=== PATIENT | female | born 1945 | race Caucasian/White ===

== ENCOUNTER 2018-03-28 08:31 | Inpatient (IN) | payer MEDICARE ==
[~2018-03-28] VITALS: Ht 157.5 cm; Wt 63.2 kg
[~2018-03-28 08:31] MED LIST: ASPI325T17 PO; ENAL5TAB PO; NITR0.4T28 SL; SIMV20TA3 PO
[2018-03-28 09:05] LABS: BASOPHILS # (AUTO) 0.03 x10^3/uL (0-0.1); BASOPHILS % (AUTO) 0 % (0-1); EOSINOPHILS # (AUTO) 0.03 x10^3/uL (0-0.4); EOSINOPHILS % (AUTO) 0 % (1-7); LYMPHOCYTES # (AUTO) 1.28 x10^3/uL (1-3.4); LYMPHOCYTES % (AUTO) 12 % (22-44); MD NO; MEAN CORPUSCULAR HEMOGLOBIN 26.8 pg (27.0-34.8); MEAN CORPUSCULAR HGB CONC 32.9 g/dL (32.4-35.8); MEAN CORPUSCULAR VOLUME 81.6 fL (80-100); MEAN PLATELET VOLUME 8.4 fL (7.4-10.4); MONOCYTES # (AUTO) 0.47 x10^3/uL (0.2-0.8); MONOCYTES % (AUTO) 5 % (2-9); NEUTROPHILS # (AUTO) 8.46 x10^3/uL (1.8-6.8); NEUTROPHILS % (AUTO) 82 % (42-75); PLATELET COUNT 315 x10^3/uL (130-400); RED BLOOD COUNT 4.29 x10^6/uL (3.82-5.3); RED CELL DISTRIBUTION WIDTH 16.5 % (9.6-15.2)
[2018-03-28] MEDS ORDERED: PROMETHAZINE 25 MG/ML, 1ML ONE (09:07)
[2018-03-28] MEDS ORDERED: MAALOX/HYOSCYAMINE/LIDOCAINE 45 ML BTL ONE (09:07)
[2018-03-28 09:14] LABS: INTERNATIONAL NORMALIZED RATIO 0.97 (0.93-1.1)
[2018-03-28 09:22] LABS: TROPONIN I < 0.015 ng/mL (0.000-0.045)
[2018-03-28 09:25] LABS: ALANINE AMINOTRANSFERASE 18 U/L (12-78); ALBUMIN 3.2 g/dL (3.4-5.0); ANION GAP 7 mmol/L (5-15); CALCIUM 8.3 mg/dL (8.5-10.1); CHLORIDE 106 mmol/L (98-107); CREATININE 0.78 mg/dL (0.55-1.02)
[2018-03-28 09:27] LABS: ALKALINE PHOSPHATASE 65 U/L (45-117); BILIRUBIN,TOTAL 0.3 mg/dL (0.2-1.0)
[2018-03-28] MEDS ORDERED: PROMETHAZINE 25 MG/ML, 1ML IM ONE ×2 (09:30→10:00)
[2018-03-28] MEDS ORDERED: ALPR1TAB6 PO (09:59)
[2018-03-28] MEDS ORDERED: MAALOX/HYOSCYAMINE/LIDOCAINE 45 ML BTL PO ONE (10:00)
[2018-03-28 10:44] LABS: MICROSCOPIC AUTO
[2018-03-28 10:45] LABS: CULTURE INDICATED? YES
[2018-03-28] MEDS ORDERED: OMNIPAQUE 350 MG/ML, 100ML BOTTLE ONE (10:46)
[2018-03-28] MEDS ORDERED: CEFTRIAXONE PMX 1GM/50ML 50 ML ONE ×2 (10:57→10:58)
[2018-03-28] MEDS ORDERED: CEFTRIAXONE PMX 1GM/50ML 50 ML IV ONE (11:00)
[2018-03-28 11:28] VITALS: BP 161/77
[2018-03-28] MEDS ORDERED: CEFTRIAXONE PMX 1GM/50ML 50 ML IV SCH (12:00)
[2018-03-28] MEDS ORDERED: POTASSIUM CHLORIDE 20 MEQ TAB.ER.PRT PO ONE (12:00)
[2018-03-28] MEDS ORDERED: ENOXAPARIN 40 MG/0.4 ML SQ SCH (12:30)
[2018-03-28] MEDS ORDERED: hydrALAzine 20 MG/ML, 1ML IVPush PRN (12:30)
[2018-03-28] MEDS ORDERED: ONDANSETRON 2MG/ML, 2ML IVPush PRN (12:30)
[2018-03-28] MEDS ORDERED: ACETAMINOPHEN 325 MG TABLET PO PRN (12:30)
[2018-03-28] MEDS ORDERED: morphine SULFATE 10 MG/ML, 1ML IVPush PRN (12:30)
[2018-03-28] MEDS ORDERED: HYDROcodone/APAP 5/325 TABLET PO PRN (12:30)
[2018-03-28] MEDS: CEFTRIAXONE 1,000 MG in SODIUM CHLORIDE 0.9% 50 ML IV SCH (12:41)
[2018-03-28] MEDS: FLUOXETINE HCL 20 MG CAPSULE PO SCH (12:53)
[2018-03-28 12:59] VITALS: BP 197/111
[2018-03-28 13:32] LABS: FREE T4 (FREE THYROXINE) 1.07 ng/dL (0.76-1.46); THYROID STIMULATING HORMONE 0.997 mIU/L (0.358-3.740)
[2018-03-28 16:44] VITALS: BP 134/72
[2018-03-28 19:54] VITALS: BP 125/76
[2018-03-28] MEDS: TEMAZEPAM 15 MG CAPSULE PO PRN (20:25)
[2018-03-28] MEDS: LISINOPRIL 10 MG TABLET PO SCH (20:25)
[2018-03-28] MEDS: PANTOPROZOLE 40MG TABLET PO SCH (20:26)
[2018-03-28 20:35] LABS: TROPONIN I < 0.015 ng/mL (0.000-0.045)
[2018-03-29] VITALS (9 sets, daily range): BP systolic 76–114; BP diastolic 51–72
[2018-03-29 05:10] LABS: BASOPHILS % (AUTO) 1 % (0-1); EOSINOPHILS # (AUTO) 0.04 x10^3/uL (0-0.4); EOSINOPHILS % (AUTO) 0 % (1-7); LYMPHOCYTES # (AUTO) 2.01 x10^3/uL (1-3.4); LYMPHOCYTES % (AUTO) 13 % (22-44); MD NO; MEAN CORPUSCULAR HEMOGLOBIN 26.9 pg (27.0-34.8); MEAN CORPUSCULAR HGB CONC 32.4 g/dL (32.4-35.8); MEAN CORPUSCULAR VOLUME 82.9 fL (80-100); MEAN PLATELET VOLUME 9.1 fL (7.4-10.4); MONOCYTES # (AUTO) 0.84 x10^3/uL (0.2-0.8); MONOCYTES % (AUTO) 6 % (2-9); NEUTROPHILS # (AUTO) 12.36 x10^3/uL (1.8-6.8); NEUTROPHILS % (AUTO) 81 % (42-75); PLATELET COUNT 380 x10^3/uL (130-400); RED BLOOD COUNT 4.85 x10^6/uL (3.82-5.3); RED CELL DISTRIBUTION WIDTH 16.2 % (9.6-15.2)
[2018-03-29 05:18] LABS: ALANINE AMINOTRANSFERASE 20 U/L (12-78); ALBUMIN 3.1 g/dL (3.4-5.0); ANION GAP 8 mmol/L (5-15); CALCIUM 8.3 mg/dL (8.5-10.1); CHLORIDE 101 mmol/L (98-107); CREATININE 0.91 mg/dL (0.55-1.02)
[2018-03-29 05:23] LABS: BILIRUBIN,TOTAL 0.4 mg/dL (0.2-1.0); CHOL/HDL RATIO 2.4; CHOLESTEROL, TOTAL 184 mg/dL (140-239); HDL CHOL % 42 % (28-40); HDL CHOLESTEROL (DIRECT) 77 mg/dL (40-60); LDL CHOLESTEROL,CALCULATED 93 mg/dL (54-169); LDL/HDL RATIO 1.2 (0.5-3.0); TRIGLYCERIDES 70 mg/dL (50-200); TROPONIN I < 0.015 ng/mL (0.000-0.045); VLDL CHOLESTEROL 14 mg/dL (0-25)
[2018-03-29 05:24] LABS: ALKALINE PHOSPHATASE 66 U/L (45-117)
[2018-03-29] MEDS: PANTOPROZOLE 40MG TABLET PO SCH ×2 (07:45→22:01)
[2018-03-29] MEDS: FLUOXETINE HCL 20 MG CAPSULE PO SCH (07:45)
[2018-03-29] MEDS: LISINOPRIL 10 MG TABLET PO SCH ×2 (07:45→22:01)
[2018-03-29] MEDS ORDERED: REGADENOSON 0.4 MG/5 ML SYRINGE ONE (08:27)
[2018-03-29] MEDS: CEFTRIAXONE 1,000 MG in SODIUM CHLORIDE 0.9% 50 ML IV SCH (12:52)
[2018-03-29] MEDS ORDERED: FLUO20CA19 PO (18:41)
[2018-03-29] MEDS ORDERED: SODIUM CHLORIDE 0.9%, 500ML IVBOLUS ONE ×3 (20:30→23:30)
[2018-03-29] MEDS: SIMVASTATIN 40 MG TABLET PO SCH (22:02)
[2018-03-29] MEDS: ALPRazolam 1MG TABLET PO PRN (22:03)
[2018-03-29] MEDS: TEMAZEPAM 15 MG CAPSULE PO PRN (22:03)
[2018-03-30] VITALS (19 sets, daily range): BP systolic 77–122; BP diastolic 49–85
[2018-03-30] MEDS ORDERED: SODIUM CHLORIDE 0.9%, 500ML IVBOLUS ONE ×3 (00:30→03:00)
[2018-03-30] MEDS ORDERED: SODIUM CHLORIDE 0.9% 1,000 ML IV ONE (00:30)
[2018-03-30] MEDS: PANTOPRAZOLE 40 MG IV IVPush SCH ×2 (02:13→15:15)
[2018-03-30 05:16] LABS: MEAN CORPUSCULAR HEMOGLOBIN 27.1 pg (27.0-34.8); MEAN CORPUSCULAR HGB CONC 32.7 g/dL (32.4-35.8); MEAN CORPUSCULAR VOLUME 82.8 fL (80-100); MEAN PLATELET VOLUME 8.9 fL (7.4-10.4); PLATELET COUNT 244 x10^3/uL (130-400); RED BLOOD COUNT 3.54 x10^6/uL (3.82-5.3)
[2018-03-30 05:21] LABS: ANION GAP 5 mmol/L (5-15); CALCIUM 7.3 mg/dL (8.5-10.1); CHLORIDE 110 mmol/L (98-107)
[2018-03-30 05:22] LABS: CREATININE 0.86 mg/dL (0.55-1.02)
[2018-03-30 06:39] LABS: BASOPHILS # (AUTO) 0.04 x10^3/uL (0-0.1); BASOPHILS % (AUTO) 0 % (0-1); EOSINOPHILS # (AUTO) 0.42 x10^3/uL (0-0.4); EOSINOPHILS % (AUTO) 4 % (1-7); LYMPHOCYTES # (AUTO) 2.94 x10^3/uL (1-3.4); LYMPHOCYTES % (AUTO) 28 % (22-44); MD MORPH REVIEW ONLY; MONOCYTES # (AUTO) 0.71 x10^3/uL (0.2-0.8); MONOCYTES % (AUTO) 7 % (2-9); NEUTROPHILS # (AUTO) 6.52 x10^3/uL (1.8-6.8); NEUTROPHILS % (AUTO) 61 % (42-75)
[2018-03-30 06:40] LABS: ANISOCYTOSIS 1+; OVALOCYTES 1+; POLYCHROMASIA 1+
[2018-03-30 06:42] LABS: <PLATELET ESTIMATE> ADEQUATE; <PLT MORPHOLOGY> NORMAL PLT MORPH; SPHEROCYTES 1+
[2018-03-30] MEDS: FLUOXETINE HCL 20 MG CAPSULE PO SCH (07:47)
[2018-03-30] MEDS: CEFTRIAXONE 1,000 MG in SODIUM CHLORIDE 0.9% 50 ML IV SCH (15:15)
[2018-03-30] MEDS: ALPRazolam 1MG TABLET PO PRN ×2 (15:15→20:48)
[2018-03-30] MEDS: SIMVASTATIN 40 MG TABLET PO SCH (20:42)
[2018-03-30] MEDS: TEMAZEPAM 15 MG CAPSULE PO PRN (23:37)
[2018-03-31] MEDS: PANTOPRAZOLE 40 MG IV IVPush SCH ×2 (02:21→13:12)
[2018-03-31 02:33] VITALS: BP 99/70
[2018-03-31 05:28] LABS: BASOPHILS # (AUTO) 0.06 x10^3/uL (0-0.1); BASOPHILS % (AUTO) 1 % (0-1); EOSINOPHILS # (AUTO) 0.48 x10^3/uL (0-0.4); EOSINOPHILS % (AUTO) 8 % (1-7); LYMPHOCYTES # (AUTO) 2.07 x10^3/uL (1-3.4); LYMPHOCYTES % (AUTO) 33 % (22-44); MD NO; MEAN CORPUSCULAR HEMOGLOBIN 27.2 pg (27.0-34.8); MEAN CORPUSCULAR VOLUME 82.4 fL (80-100); MEAN PLATELET VOLUME 8.4 fL (7.4-10.4); MONOCYTES # (AUTO) 0.47 x10^3/uL (0.2-0.8); MONOCYTES % (AUTO) 7 % (2-9); NEUTROPHILS # (AUTO) 3.26 x10^3/uL (1.8-6.8); NEUTROPHILS % (AUTO) 52 % (42-75); PLATELET COUNT 214 x10^3/uL (130-400); RED BLOOD COUNT 3.06 x10^6/uL (3.82-5.3); RED CELL DISTRIBUTION WIDTH 16.2 % (9.6-15.2)
[2018-03-31 05:33] LABS: CHLORIDE 110 mmol/L (98-107)
[2018-03-31 05:51] LABS: ALANINE AMINOTRANSFERASE 12 U/L (12-78); ALBUMIN 2.2 g/dL (3.4-5.0); ALKALINE PHOSPHATASE 43 U/L (45-117); ANION GAP 4 mmol/L (5-15); BILIRUBIN,TOTAL 0.2 mg/dL (0.2-1.0); CALCIUM 7.4 mg/dL (8.5-10.1); CREATININE 0.57 mg/dL (0.55-1.02); TOTAL PROTEIN 5.1 g/dL (6.4-8.2)
[2018-03-31] MEDS ORDERED: PROPOFOL 10 MG/ML, 20ML ONE ×2 (06:58)
[2018-03-31] MEDS ORDERED: LIDOCAINE-MPF 2% ,5ML ONE ×2 (06:58)
[2018-03-31] MEDS ORDERED: OXYcodone 5 MG/5 ML ORAL.SOL UDC PO PRN (07:00)
[2018-03-31] MEDS ORDERED: ACETAMINOPHEN 325 MG TABLET PO PRN (07:00)
[2018-03-31] MEDS ORDERED: HALOPERIDOL 5 MG/ML IV PRN (07:00)
[2018-03-31] MEDS ORDERED: METOPROLOL 1 MG/ML, 5ML IV PRN (07:00)
[2018-03-31] MEDS ORDERED: EPHEDRINE 50 MG/ML, 1ML IVPush PRN (07:00)
[2018-03-31] MEDS ORDERED: FENTANYL PF 100 MCG/2ML IV PRN (07:00)
[2018-03-31] MEDS ORDERED: hydrALAzine 20 MG/ML, 1ML IV PRN (07:00)
[2018-03-31] MEDS ORDERED: PROMETHAZINE 25 MG/ML, 1ML IV PRN (07:00)
[2018-03-31] MEDS ORDERED: MORPHINE SULFATE 4 MG/ML, 1ML IVPush PRN (07:00)
[2018-03-31] MEDS ORDERED: ALBUTEROL SULFATE 2.5 MG/3 ML NPPB PRN (07:00)
[2018-03-31] MEDS ORDERED: LABETALOL 5MG/ML, 20ML IV PRN (07:00)
[2018-03-31 08:26] VITALS: BP 112/73
[2018-03-31] MEDS: FLUOXETINE HCL 20 MG CAPSULE PO SCH (09:37)
[2018-03-31] MEDS: CEFTRIAXONE 1,000 MG in SODIUM CHLORIDE 0.9% 50 ML IV SCH (13:12)
[2018-03-31] MEDS: ALPRazolam 1MG TABLET PO PRN ×2 (13:12→22:30)
[2018-03-31 13:19] VITALS: BP 109/73
[2018-03-31 15:08] VITALS: BP 106/74
[2018-03-31] MEDS ORDERED: GOLYTELY 4,000ML ORAL.SOL PO ONE (18:00)
[2018-03-31 18:43] VITALS: BP 125/70
[2018-03-31] MEDS: SIMVASTATIN 40 MG TABLET PO SCH (20:44)
[2018-04-01 00:50] VITALS: BP 122/77
[2018-04-01] MEDS: PANTOPRAZOLE 40 MG IV IVPush SCH ×2 (02:16→14:43)
[2018-04-01 07:36] VITALS: BP 115/73
[2018-04-01] MEDS: ALPRazolam 1MG TABLET PO PRN ×2 (09:18→19:58)
[2018-04-01] MEDS: FLUOXETINE HCL 20 MG CAPSULE PO SCH (09:18)
[2018-04-01] MEDS ORDERED: PROPOFOL 10 MG/ML, 20ML ONE (13:12)
[2018-04-01] MEDS ORDERED: OXYcodone 5 MG/5 ML ORAL.SOL UDC PO PRN (14:00)
[2018-04-01] MEDS ORDERED: ACETAMINOPHEN 325 MG TABLET PO PRN (14:00)
[2018-04-01] MEDS ORDERED: HYDROcodone/APAP 7.5-325MG/15ML UDC PO PRN (14:00)
[2018-04-01 14:42] VITALS: BP 117/76
[2018-04-01] MEDS: CEFTRIAXONE PMX 1GM/50ML 50 ML IV SCH (15:40)
[2018-04-01 19:29] VITALS: BP 99/63
[2018-04-01] MEDS: SIMVASTATIN 40 MG TABLET PO SCH (19:58)
[2018-04-01] MEDS: TEMAZEPAM 15 MG CAPSULE PO PRN (23:12)
[2018-04-02 00:51] VITALS: BP 105/67
[2018-04-02] MEDS: PANTOPRAZOLE 40 MG IV IVPush SCH (02:03)
[2018-04-02 05:19] LABS: BASOPHILS # (AUTO) 0.04 x10^3/uL (0-0.1); BASOPHILS % (AUTO) 1 % (0-1); EOSINOPHILS # (AUTO) 0.32 x10^3/uL (0-0.4); EOSINOPHILS % (AUTO) 5 % (1-7); LYMPHOCYTES # (AUTO) 2.35 x10^3/uL (1-3.4); LYMPHOCYTES % (AUTO) 36 % (22-44); MD NO; MEAN CORPUSCULAR HEMOGLOBIN 27.4 pg (27.0-34.8); MEAN CORPUSCULAR HGB CONC 32.9 g/dL (32.4-35.8); MEAN CORPUSCULAR VOLUME 83.2 fL (80-100); MEAN PLATELET VOLUME 8.1 fL (7.4-10.4); MONOCYTES # (AUTO) 0.43 x10^3/uL (0.2-0.8); MONOCYTES % (AUTO) 7 % (2-9); NEUTROPHILS # (AUTO) 3.36 x10^3/uL (1.8-6.8); NEUTROPHILS % (AUTO) 52 % (42-75); PLATELET COUNT 268 x10^3/uL (130-400); RED BLOOD COUNT 3.33 x10^6/uL (3.82-5.3)
[2018-04-02 05:34] LABS: CHLORIDE 108 mmol/L (98-107)
[2018-04-02 05:39] LABS: ANION GAP 5 mmol/L (5-15); CALCIUM 8.2 mg/dL (8.5-10.1); CREATININE 0.68 mg/dL (0.55-1.02)
[2018-04-02] MEDS ORDERED: POTASSIUM CHLORIDE 20 MEQ TAB.ER.PRT PO ONE (08:00)
[2018-04-02] MEDS: FLUOXETINE HCL 20 MG CAPSULE PO SCH (10:02)
[2018-04-02] MEDS: ALPRazolam 1MG TABLET PO PRN (10:02)
[2018-04-02] MEDS ORDERED: OMEP20TA62 PO (10:50)
[2018-04-02] MEDS ORDERED: SIMV40TA3 PO (10:55)
[2018-04-02] MEDS ORDERED: CEFD300C37 PO (10:55)
[2018-04-02] MEDS: CEFTRIAXONE PMX 1GM/50ML 50 ML IV SCH (13:00)
== END 2018-04-02 13:52 | disposition home or self-care (01) | DRG 871 ==
LOC: ED 09:27 → EDIP 10:04 → 5SO 11:25
PROVIDERS: ADMIT Hospitalist; ATTEND Internal Medicine
PROC: 0DB48ZX Excision of Esophagogastric Junction, Via Natural or Artificial Opening Endoscopic, Diagnostic (ICD-10-PCS; principal; 2018-03-31 07:00)
PROC: 0DBH8ZX Excision of Cecum, Via Natural or Artificial Opening Endoscopic, Diagnostic (ICD-10-PCS; 2018-04-01)
DX: A41.9 Sepsis, unspecified organism (principal); J96.00 Acute respiratory failure, unspecified whether with hypoxia or hypercapnia; N39.0 Urinary tract infection, site not specified; I50.30 Unspecified diastolic (congestive) heart failure; K92.0 Hematemesis; Q43.8 Other specified congenital malformations of intestine; F41.9 Anxiety disorder, unspecified; E87.6 Hypokalemia; E78.5 Hyperlipidemia, unspecified; Z95.5 Presence of coronary angioplasty implant and graft; D64.9 Anemia, unspecified; F45.8 Other somatoform disorders; I11.0 Hypertensive heart disease with heart failure; I25.10 Atherosclerotic heart disease of native coronary artery without angina pectoris; I27.20 Pulmonary hypertension, unspecified; I34.0 Nonrheumatic mitral (valve) insufficiency; I35.8 Other nonrheumatic aortic valve disorders; K21.0 Gastro-esophageal reflux disease with esophagitis; K22.2 Esophageal obstruction; K63.5 Polyp of colon; K64.8 Other hemorrhoids; Z79.899 Other long term (current) drug therapy; Z82.49 Family history of ischemic heart disease and other diseases of the circulatory system; Z90.710 Acquired absence of both cervix and uterus; K64.1 Second degree hemorrhoids
CPT/HCPCS: 36415; 74022; 74177; 76700; 78452; 80048; 80053; 80061; 81001; 82274; 83605; 83690; 83735; 84100; 84439; 84443; 84484; 85014; 85018; 85025; 85610; 86677; 86850; 86900; 87040; 87077; 87086; 87186; 88305; 93005; 93017; 93306; 96365; 96372; J0696; J1650; J2405; J2550; J2704; J2785; J3490; Q9967; A9502; C9113; C9898; J0360; J7030; J7040